=== PATIENT | male | born 1950 | race Caucasian/White ===

== ENCOUNTER 2017-10-16 00:04 | Inpatient (IN) | payer MEDICAID ==
[2017-10-16] MEDS ORDERED: ONDANSETRON 4 MG INJ IV (01:00)
[2017-10-16] MEDS ORDERED: MAGNESIUM HYDROXIDE 30ML CUP PO (01:00)
[2017-10-16] MEDS ORDERED: LACTULOSE 30ML CUP GTB (01:00)
[2017-10-16] MEDS ORDERED: hydrALAzine 20 MG INJ IV (01:00)
[2017-10-16] MEDS ORDERED: OLANZAPINE 5 MG TAB PO (01:00)
[2017-10-16 01:43] LABS: TROPONIN-I < 0.010 ng/ml (0.000-0.120)
[2017-10-16 02:37] LABS: ADD MAN DIFF? NO
[2017-10-16] MEDS: NACL 3% FOR INHALATION 15 ML NEBU NEB (02:38)
[2017-10-16 02:43] LABS: BASOPHILS % 0.3 % (0.0-2.0); EOSINOPHILS # 0.1 10^3/ul (0.0-0.5); EOSINOPHILS % 1.3 % (0.0-7.0); HEMATOCRIT 35.8 % (42.0-52.0); HEMOGLOBIN 11.7 g/dl (14.0-18.0); IMMATURE GRANS #M 0.03 10^3/ul; IMMATURE GRANS % (M) 0.4 %; LYMPHOCYTES % 12.6 % (15.0-51.0); MEAN CORPUSCULAR HEMOGLOBIN 28.5 pg (29.0-33.0); MEAN CORPUSCULAR HGB CONC 32.7 g/dl (32.0-37.0); MEAN CORPUSCULAR VOLUME 87.1 fl (82.0-101.0); MEAN PLATELET VOLUME 8.7 fl (7.4-10.4); MONOCYTE # 0.8 10^3/ul (0.3-0.9); MONOCYTES % 9.7 % (0.0-11.0); NEUTROPHILS % 75.7 % (39.0-77.0); PLATELET COUNT 236 10^3/UL (140-415); RED BLOOD COUNT 4.11 10^6/ul (4.70-6.10); RED CELL DISTRIBUTION WIDTH 14.6 % (11.5-14.5)
[2017-10-16 03:07] LABS: ALANINE AMINOTRANSFERASE 28 IU/L (13-69); ALBUMIN 3.4 g/dl (3.3-4.9); ALBUMIN/GLOBULIN RATIO 1.09; ALKALINE PHOSPHATASE 163 IU/L (42-121); ANION GAP 16 (8-16); ASPARTATE AMINO TRANSFERASE 21 IU/L (15-46); BILIRUBIN,INDIRECT 0.2 mg/dl (0-1.1); BILIRUBIN,TOTAL 0.2 mg/dl (0.2-1.3); BLOOD UREA NITROGEN 18 mg/dl (7-20); CALCIUM 9.5 mg/dl (8.4-10.2); CARBON DIOXIDE 25 mmol/L (21-31); CHLORIDE 103 mmol/L (97-110); CREATININE 0.69 mg/dl (0.61-1.24); GLUCOSE 116 mg/dl (70-220); MAGNESIUM 1.9 mg/dl (1.7-2.5); POTASSIUM 4.6 mmol/L (3.5-5.1); SODIUM 139 mmol/L (135-144); TOTAL PROTEIN 6.5 g/dl (6.1-8.1)
[2017-10-16 05:09] LABS: ADD MAN DIFF? NO
[2017-10-16 05:18] LABS: BASOPHILS % 0.4 % (0.0-2.0); EOSINOPHILS # 0.1 10^3/ul (0.0-0.5); EOSINOPHILS % 1.4 % (0.0-7.0); HEMATOCRIT 36.3 % (42.0-52.0); HEMOGLOBIN 11.8 g/dl (14.0-18.0); IMMATURE GRANS #M 0.05 10^3/ul; IMMATURE GRANS % (M) 0.6 %; LYMPHOCYTES # 1.3 10^3/ul (0.8-2.9); LYMPHOCYTES % 15.9 % (15.0-51.0); MEAN CORPUSCULAR HEMOGLOBIN 28.5 pg (29.0-33.0); MEAN CORPUSCULAR HGB CONC 32.5 g/dl (32.0-37.0); MEAN CORPUSCULAR VOLUME 87.7 fl (82.0-101.0); MEAN PLATELET VOLUME 8.9 fl (7.4-10.4); MONOCYTE # 0.9 10^3/ul (0.3-0.9); MONOCYTES % 10.8 % (0.0-11.0); NEUTROPHIL # 5.7 10^3/ul (1.6-7.5); NEUTROPHILS % 70.9 % (39.0-77.0); PLATELET COUNT 263 10^3/UL (140-415); RED BLOOD COUNT 4.14 10^6/ul (4.70-6.10); RED CELL DISTRIBUTION WIDTH 14.7 % (11.5-14.5)
[2017-10-16 05:40] LABS: TROPONIN-I < 0.010 ng/ml (0.000-0.120)
[2017-10-16] MEDS: TRIMETHOPRIM/SULFAMETHOX (PO SYG) GTB ×2 (09:00→20:37)
[2017-10-16] MEDS ORDERED: PROPRANOLOL 40 MG TAB PO (09:00)
[2017-10-16] MEDS: FERROUS SULFATE 60 MG/ML 5ML CUP GTB (09:03)
[2017-10-16] MEDS: ACETAMINOPHEN 650MG/20.3ML CUP GTB (09:03)
[2017-10-16] MEDS: MICONAZOLE 2% 30 GM CR TOP ×2 (09:03→20:46)
[2017-10-16] MEDS: CHLORHEXIDINE GLUCONATE 15 ML UD CUP MT ×2 (09:04→20:37)
[2017-10-16] MEDS: FAMOTIDINE 20 MG TAB GTB ×2 (09:04→20:37)
[2017-10-16] MEDS: LISINOPRIL 10 MG TAB GTB (09:04)
[2017-10-16] MEDS: LEVETIRACETAM (100 MG/ML) 5ML CUP GTB ×2 (09:04→20:36)
[2017-10-16] MEDS: LACTOBACILLUS RHAMNOSUS CAP GTB (09:04)
[2017-10-16] MEDS: PROPYLTHIOURACIL 50 MG TAB GTB ×3 (09:04→21:58)
[2017-10-16] MEDS: MULTIVITAMINS 30 ML CUP GTB (09:04)
[2017-10-16] MEDS: ASCORBIC ACID 250 MG TAB GTB ×2 (09:05→21:58)
[2017-10-16] MEDS: HEPARIN 5,000 UNIT/0.5 ML VIAL SC ×2 (09:06→21:04)
[2017-10-16] MEDS: LACOSAMIDE (100 MG/10 ML PO SYR) GTB ×2 (09:11→21:00)
[2017-10-16] MEDS: NYSTATIN SUSP 5 ML CUP PO ×4 (09:11→20:37)
[2017-10-16 10:47] LABS: CREATINE KINASE < 20 IU/L (23-200)
[2017-10-16] MEDS ORDERED: PROPRANOLOL 10 MG TAB PO (11:00)
[2017-10-16 11:04] LABS: FREE THYROXINE INDEX (Calc) 6.08 ug/ml (0.65-3.89); T3 UPTAKE 40.8 % (23.5-40.5); T4 (THYROXINE) 14.9 ug/dl (5.5-11.0)
[2017-10-16] MEDS ORDERED: LORAZEPAM 1 MG TAB GTB (12:00)
[2017-10-16] MEDS ORDERED: LORAZEPAM 2 MG INJ (12:02)
[2017-10-16] MEDS: LORAZEPAM 2 MG INJ IV ×3 (12:40→22:18)
[2017-10-16 18:01] LABS: TROPONIN-I < 0.010 ng/ml (0.000-0.120)
[2017-10-16] MEDS: traZODone 50 MG TAB GTB (22:03)
[2017-10-16] MEDS: METOPROLOL 5 MG INJ IV (22:39)
[2017-10-17] MEDS: SOD CHLORIDE 0.9% 500 ML IV (02:44)
[2017-10-17] MEDS: LORAZEPAM 2 MG INJ IV ×2 (04:46→08:29)
[2017-10-17 05:09] LABS: AADO2 Arterial 73.1 mmHg (7.0-24.0); Allen Test ACCEPTAB; Arterial Base Excess 0.2 mmol/L (-3.0-3); Arterial Blood Gas Oxygen Sat 99.4 mmHG (95.0-98.0); Arterial COHb 0.3 % (0.0-3.0); Arterial Fraction of Oxyhgb 98.6 % (93.0-99.0); Arterial HCO3 23.7 mmol/L (22.0-26.0); Arterial MetHb 0.5 % (0.0-1.5); Arterial Total Hemglobin 11.4 g/dl (12.0-18.0); Arterial pCO2 34.5 mmhg (35-45); MODE VENT - AC; Site Right Radial
[2017-10-17 05:51] LABS: ADD MAN DIFF? NO
[2017-10-17 05:57] LABS: BASOPHILS % 0.2 % (0.0-2.0); EOSINOPHILS # 0.1 10^3/ul (0.0-0.5); EOSINOPHILS % 2.2 % (0.0-7.0); HEMATOCRIT 34.1 % (42.0-52.0); IMMATURE GRANS #M 0.02 10^3/ul; IMMATURE GRANS % (M) 0.4 %; LYMPHOCYTES % 17.5 % (15.0-51.0); MEAN CORPUSCULAR HEMOGLOBIN 28.3 pg (29.0-33.0); MEAN CORPUSCULAR HGB CONC 32.3 g/dl (32.0-37.0); MEAN CORPUSCULAR VOLUME 87.7 fl (82.0-101.0); MEAN PLATELET VOLUME 9.1 fl (7.4-10.4); MONOCYTE # 0.7 10^3/ul (0.3-0.9); MONOCYTES % 13.4 % (0.0-11.0); NEUTROPHIL # 3.6 10^3/ul (1.6-7.5); NEUTROPHILS % 66.3 % (39.0-77.0); PLATELET COUNT 189 10^3/UL (140-415); RED BLOOD COUNT 3.89 10^6/ul (4.70-6.10); RED CELL DISTRIBUTION WIDTH 14.6 % (11.5-14.5)
[2017-10-17 05:57] LABS: WHITE BLOOD COUNT 5.4 10^3/ul (4.8-10.8)
[2017-10-17 06:08] LABS: ADD UMIC YES; UR ASCORBIC ACID 40 mg/dL (NEGATIVE); UR BILIRUBIN (Dip) NEGATIVE (NEGATIVE); UR BLOOD (Dip) NEGATIVE (NEGATIVE); UR CALCIUM OXALATE CRYSTAL MANY /HPF (NONE SEEN); UR CLARITY CLOUDY (CLEAR); UR COLOR YELLOW (YELLOW); UR GLUCOSE (Dip) NEGATIVE (NEGATIVE); UR KETONES (Dip) NEGATIVE (NEGATIVE); UR LEUKOCYTE ESTERASE (Dip) NEGATIVE Leu/ul (NEGATIVE); UR MUCUS FEW /HPF (NONE SEEN); UR NITRITE (Dip) NEGATIVE (NEGATIVE); UR RBC 1 /HPF (0-5); UR SPECIFIC GRAVITY (Dip) 1.021 (1.003-1.030); UR TOTAL PROTEIN (Dip) 1+ mg/dl (NEGATIVE); UR UROBILINOGEN (Dip) 2+ mg/dL (NEGATIVE); UR WBC 1 /HPF (0-5)
[2017-10-17 06:14] LABS: LACTIC ACID 0.8 mmol/L (0.5-2.0)
[2017-10-17 06:21] LABS: ALANINE AMINOTRANSFERASE 29 IU/L (13-69); ALBUMIN/GLOBULIN RATIO 1.07; ALKALINE PHOSPHATASE 150 IU/L (42-121); ANION GAP 12 (8-16); BILIRUBIN,INDIRECT 0.2 mg/dl (0-1.1); BILIRUBIN,TOTAL 0.2 mg/dl (0.2-1.3); BLOOD UREA NITROGEN 16 mg/dl (7-20); CALCIUM 8.8 mg/dl (8.4-10.2); CARBON DIOXIDE 25 mmol/L (21-31); CHLORIDE 108 mmol/L (97-110); CREATININE 0.53 mg/dl (0.61-1.24); SODIUM 141 mmol/L (135-144); TOTAL PROTEIN 5.8 g/dl (6.1-8.1)
[2017-10-17 06:22] LABS: ASPARTATE AMINO TRANSFERASE 31 IU/L (15-46); GLUCOSE 97 mg/dl (70-220)
[2017-10-17] MEDS: LACOSAMIDE (100 MG/10 ML PO SYR) GTB ×2 (09:00→21:18)
[2017-10-17] MEDS: FERROUS SULFATE 60 MG/ML 5ML CUP GTB (09:02)
[2017-10-17] MEDS: MULTIVITAMINS 30 ML CUP GTB (09:02)
[2017-10-17] MEDS: LACTOBACILLUS RHAMNOSUS CAP GTB (09:02)
[2017-10-17] MEDS: LEVETIRACETAM (100 MG/ML) 5ML CUP GTB ×2 (09:02→21:16)
[2017-10-17] MEDS: TRIMETHOPRIM/SULFAMETHOX (PO SYG) GTB ×2 (09:02→21:17)
[2017-10-17] MEDS: ASCORBIC ACID 250 MG TAB GTB ×2 (09:03→21:16)
[2017-10-17] MEDS: LISINOPRIL 10 MG TAB GTB (09:03)
[2017-10-17] MEDS: PROPYLTHIOURACIL 50 MG TAB GTB ×3 (09:03→21:16)
[2017-10-17] MEDS: NYSTATIN SUSP 5 ML CUP PO ×4 (09:03→21:17)
[2017-10-17] MEDS: CHLORHEXIDINE GLUCONATE 15 ML UD CUP MT ×2 (09:03→21:16)
[2017-10-17] MEDS: FAMOTIDINE 20 MG TAB GTB ×2 (09:03→21:16)
[2017-10-17] MEDS: MICONAZOLE 2% 30 GM CR TOP ×2 (09:04→21:17)
[2017-10-17] MEDS: HEPARIN 5,000 UNIT/0.5 ML VIAL SC ×2 (09:05→21:27)
[2017-10-17] MEDS: FENTAnyl (DRIP) 1000 mcg/100mL 100 ML IV (12:27)
[2017-10-17] MEDS: traZODone 50 MG TAB GTB (21:16)
[2017-10-18 05:15] LABS: ADD MAN DIFF? NO
[2017-10-18 05:26] LABS: BASOPHILS % 0.5 % (0.0-2.0); EOSINOPHILS # 0.2 10^3/ul (0.0-0.5); EOSINOPHILS % 2.8 % (0.0-7.0); HEMATOCRIT 32.2 % (42.0-52.0); HEMOGLOBIN 10.5 g/dl (14.0-18.0); IMMATURE GRANS #M 0.03 10^3/ul; IMMATURE GRANS % (M) 0.5 %; LYMPHOCYTES # 0.9 10^3/ul (0.8-2.9); LYMPHOCYTES % 14.9 % (15.0-51.0); MEAN CORPUSCULAR HEMOGLOBIN 28.7 pg (29.0-33.0); MEAN CORPUSCULAR HGB CONC 32.6 g/dl (32.0-37.0); MEAN PLATELET VOLUME 8.9 fl (7.4-10.4); MONOCYTE # 0.7 10^3/ul (0.3-0.9); MONOCYTES % 10.8 % (0.0-11.0); NEUTROPHIL # 4.3 10^3/ul (1.6-7.5); NEUTROPHILS % 70.5 % (39.0-77.0); PLATELET COUNT 192 10^3/UL (140-415); RED BLOOD COUNT 3.66 10^6/ul (4.70-6.10); RED CELL DISTRIBUTION WIDTH 14.8 % (11.5-14.5)
[2017-10-18 05:48] LABS: ANION GAP 13 (8-16); BLOOD UREA NITROGEN 10 mg/dl (7-20); CALCIUM 8.8 mg/dl (8.4-10.2); CARBON DIOXIDE 27 mmol/L (21-31); CHLORIDE 105 mmol/L (97-110); CREATININE 0.46 mg/dl (0.61-1.24); GLUCOSE 144 mg/dl (70-220); MAGNESIUM 1.7 mg/dl (1.7-2.5); PHOSPHORUS 3.1 mg/dl (2.5-4.9); POTASSIUM 4.1 mmol/L (3.5-5.1); SODIUM 141 mmol/L (135-144)
[2017-10-18] MEDS: FENTAnyl (DRIP) 1000 mcg/100mL 100 ML IV ×3 (06:51→22:21)
[2017-10-18] MEDS: MICONAZOLE 2% 30 GM CR TOP ×2 (09:22→21:17)
[2017-10-18] MEDS: TRIMETHOPRIM/SULFAMETHOX (PO SYG) GTB ×2 (09:22→21:17)
[2017-10-18] MEDS: LISINOPRIL 10 MG TAB GTB (09:23)
[2017-10-18] MEDS: LACTOBACILLUS RHAMNOSUS CAP GTB (09:23)
[2017-10-18] MEDS: FAMOTIDINE 20 MG TAB GTB ×2 (09:23→21:17)
[2017-10-18] MEDS: PROPYLTHIOURACIL 50 MG TAB GTB ×3 (09:23→21:16)
[2017-10-18] MEDS: FERROUS SULFATE 60 MG/ML 5ML CUP GTB (09:24)
[2017-10-18] MEDS: MULTIVITAMINS 30 ML CUP GTB (09:24)
[2017-10-18] MEDS: NYSTATIN SUSP 5 ML CUP PO ×4 (09:24→21:17)
[2017-10-18] MEDS: ASCORBIC ACID 250 MG TAB GTB ×2 (09:24→21:17)
[2017-10-18] MEDS: CHLORHEXIDINE GLUCONATE 15 ML UD CUP MT ×2 (09:24→21:17)
[2017-10-18] MEDS: LEVETIRACETAM (100 MG/ML) 5ML CUP GTB ×2 (09:24→21:23)
[2017-10-18] MEDS: HEPARIN 5,000 UNIT/0.5 ML VIAL SC ×2 (09:26→21:20)
[2017-10-18] MEDS: LACOSAMIDE (100 MG/10 ML PO SYR) GTB ×2 (09:38→21:17)
[2017-10-18 13:09] LABS: AADO2 Arterial 18.9 mmHg (7.0-24.0); Allen Test ACCEPTAB; Arterial Base Excess 3.1 mmol/L (-3.0-3); Arterial Blood Gas Oxygen Sat 98.7 mmHG (95.0-98.0); Arterial COHb 0.3 % (0.0-3.0); Arterial Fraction of Oxyhgb 97.9 % (93.0-99.0); Arterial HCO3 26.9 mmol/L (22.0-26.0); Arterial MetHb 0.5 % (0.0-1.5); Arterial Total Hemglobin 11.5 g/dl (12.0-18.0); Arterial pCO2 38.2 mmhg (35-45); Blood Gas PS 10; MODE VENT - CPAP; Site Right Radial
[2017-10-18] MEDS: ACETAMINOPHEN 650MG/20.3ML CUP GTB (18:08)
[2017-10-18] MEDS: LORAZEPAM 2 MG INJ IV ×2 (18:08→21:16)
[2017-10-18] MEDS: DIPHENHYDRAMINE 50 MG INJ IV (19:17)
[2017-10-18] MEDS: morphine 4 MG/ML VIAL IV (20:22)
[2017-10-18] MEDS: traZODone 50 MG TAB GTB (21:16)
[2017-10-18] MEDS ORDERED: FENTAnyl (DRIP) 1000 mcg/100mL 100 ML IV (22:30)
[2017-10-19] MEDS: morphine 4 MG/ML VIAL IV ×2 (04:46→16:53)
[2017-10-19 05:04] LABS: ADD MAN DIFF? NO
[2017-10-19 05:11] LABS: WHITE BLOOD COUNT 5.2 10^3/ul (4.8-10.8)
[2017-10-19 05:12] LABS: BASOPHILS % 0.4 % (0.0-2.0); EOSINOPHILS # 0.1 10^3/ul (0.0-0.5); EOSINOPHILS % 2.5 % (0.0-7.0); HEMATOCRIT 33.3 % (42.0-52.0); HEMOGLOBIN 10.8 g/dl (14.0-18.0); IMMATURE GRANS #M 0.01 10^3/ul; IMMATURE GRANS % (M) 0.2 %; MEAN CORPUSCULAR HEMOGLOBIN 28.8 pg (29.0-33.0); MEAN CORPUSCULAR HGB CONC 32.4 g/dl (32.0-37.0); MEAN CORPUSCULAR VOLUME 88.8 fl (82.0-101.0); MEAN PLATELET VOLUME 9.1 fl (7.4-10.4); MONOCYTE # 0.7 10^3/ul (0.3-0.9); MONOCYTES % 13.6 % (0.0-11.0); NEUTROPHIL # 3.3 10^3/ul (1.6-7.5); NEUTROPHILS % 63.3 % (39.0-77.0); PLATELET COUNT 199 10^3/UL (140-415); RED BLOOD COUNT 3.75 10^6/ul (4.70-6.10); RED CELL DISTRIBUTION WIDTH 14.9 % (11.5-14.5)
[2017-10-19 05:33] LABS: ANION GAP 12 (8-16); BLOOD UREA NITROGEN 11 mg/dl (7-20); CALCIUM 8.8 mg/dl (8.4-10.2); CARBON DIOXIDE 29 mmol/L (21-31); CHLORIDE 103 mmol/L (97-110); GLUCOSE 131 mg/dl (70-220); MAGNESIUM 1.8 mg/dl (1.7-2.5); PHOSPHORUS 4.3 mg/dl (2.5-4.9); POTASSIUM 4.8 mmol/L (3.5-5.1); SODIUM 139 mmol/L (135-144)
[2017-10-19] MEDS: CHLORHEXIDINE GLUCONATE 15 ML UD CUP MT ×2 (08:56→20:59)
[2017-10-19] MEDS: TRIMETHOPRIM/SULFAMETHOX (PO SYG) GTB (08:56)
[2017-10-19] MEDS: PROPYLTHIOURACIL 50 MG TAB GTB ×3 (08:56→20:59)
[2017-10-19] MEDS: NYSTATIN SUSP 5 ML CUP PO ×4 (08:56→20:59)
[2017-10-19] MEDS: FERROUS SULFATE 60 MG/ML 5ML CUP GTB (08:56)
[2017-10-19] MEDS: LACOSAMIDE (100 MG/10 ML PO SYR) GTB ×2 (08:56→21:02)
[2017-10-19] MEDS: MULTIVITAMINS 30 ML CUP GTB (08:56)
[2017-10-19] MEDS: ASCORBIC ACID 250 MG TAB GTB ×2 (08:57→20:59)
[2017-10-19] MEDS: FAMOTIDINE 20 MG TAB GTB ×2 (08:57→20:59)
[2017-10-19] MEDS: LACTOBACILLUS RHAMNOSUS CAP GTB (08:57)
[2017-10-19] MEDS: LISINOPRIL 10 MG TAB GTB (08:57)
[2017-10-19] MEDS: LEVETIRACETAM (100 MG/ML) 5ML CUP GTB ×2 (09:00→21:02)
[2017-10-19] MEDS: MICONAZOLE 2% 30 GM CR TOP ×2 (09:15→21:15)
[2017-10-19] MEDS: HEPARIN 5,000 UNIT/0.5 ML VIAL SC ×2 (09:15→21:18)
[2017-10-19] MEDS: CALAMINE/PRAMOXINE LOT 180 ML BTL TOP ×2 (11:30→21:15)
[2017-10-19] MEDS: DIPHENHYDRAMINE 2.5 MG/ML 5ML CUP GTB ×2 (13:07→18:16)
[2017-10-19] MEDS: FENTAnyl (DRIP) 1000 mcg/100mL 100 ML IV (16:52)
[2017-10-19] MEDS: traZODone 50 MG TAB GTB (20:59)
[2017-10-20] MEDS: DIPHENHYDRAMINE 2.5 MG/ML 5ML CUP GTB ×3 (00:32→11:38)
[2017-10-20 05:44] LABS: ADD MAN DIFF? NO
[2017-10-20 05:51] LABS: WHITE BLOOD COUNT 5.5 10^3/ul (4.8-10.8)
[2017-10-20 05:51] LABS: BASOPHILS % 0.4 % (0.0-2.0); EOSINOPHILS # 0.2 10^3/ul (0.0-0.5); EOSINOPHILS % 3.1 % (0.0-7.0); HEMATOCRIT 32.4 % (42.0-52.0); HEMOGLOBIN 10.6 g/dl (14.0-18.0); LYMPHOCYTES # 1.2 10^3/ul (0.8-2.9); LYMPHOCYTES % 21.5 % (15.0-51.0); MEAN CORPUSCULAR HEMOGLOBIN 28.9 pg (29.0-33.0); MEAN CORPUSCULAR HGB CONC 32.7 g/dl (32.0-37.0); MEAN CORPUSCULAR VOLUME 88.3 fl (82.0-101.0); MEAN PLATELET VOLUME 9.2 fl (7.4-10.4); MONOCYTE # 0.7 10^3/ul (0.3-0.9); NEUTROPHIL # 3.5 10^3/ul (1.6-7.5); NEUTROPHILS % 62.6 % (39.0-77.0); PLATELET COUNT 231 10^3/UL (140-415); RED BLOOD COUNT 3.67 10^6/ul (4.70-6.10)
[2017-10-20 06:12] LABS: ANION GAP 11 (8-16); BLOOD UREA NITROGEN 11 mg/dl (7-20); CARBON DIOXIDE 30 mmol/L (21-31); CHLORIDE 99 mmol/L (97-110); CREATININE 0.49 mg/dl (0.61-1.24); GLUCOSE 128 mg/dl (70-220); MAGNESIUM 1.8 mg/dl (1.7-2.5); PHOSPHORUS 4.5 mg/dl (2.5-4.9); POTASSIUM 4.3 mmol/L (3.5-5.1); SODIUM 136 mmol/L (135-144)
[2017-10-20] MEDS: FERROUS SULFATE 60 MG/ML 5ML CUP GTB (08:21)
[2017-10-20] MEDS: MULTIVITAMINS 30 ML CUP GTB (08:22)
[2017-10-20] MEDS: PROPYLTHIOURACIL 50 MG TAB GTB ×2 (08:22→13:44)
[2017-10-20] MEDS: FAMOTIDINE 20 MG TAB GTB (08:23)
[2017-10-20] MEDS: ASCORBIC ACID 250 MG TAB GTB (08:23)
[2017-10-20] MEDS: LEVETIRACETAM (100 MG/ML) 5ML CUP GTB (08:23)
[2017-10-20] MEDS: NYSTATIN SUSP 5 ML CUP PO ×2 (08:24→13:44)
[2017-10-20] MEDS: CALAMINE/PRAMOXINE LOT 180 ML BTL TOP (08:24)
[2017-10-20] MEDS: LACTOBACILLUS RHAMNOSUS CAP GTB (08:24)
[2017-10-20] MEDS: LISINOPRIL 10 MG TAB GTB (08:24)
[2017-10-20] MEDS: CHLORHEXIDINE GLUCONATE 15 ML UD CUP MT (08:24)
[2017-10-20] MEDS: MICONAZOLE 2% 30 GM CR TOP (08:25)
[2017-10-20] MEDS: morphine 4 MG/ML VIAL IV ×2 (08:33→12:42)
[2017-10-20] MEDS: HEPARIN 5,000 UNIT/0.5 ML VIAL SC (08:47)
[2017-10-20] MEDS: LACOSAMIDE (100 MG/10 ML PO SYR) GTB (11:38)
[2017-10-20] MEDS: ACETAMINOPHEN 650MG/20.3ML CUP GTB (11:54)
[2017-10-20] MEDS: clonAZEPAM 0.5 MG TAB NGT (13:44)
[2017-10-20] MEDS ORDERED: HYDROCODONE/APAP (5/325) TAB PO (14:30)
[2017-10-20] MEDS ORDERED: LORAZEPAM 2 MG INJ IV (14:30)
== END 2017-10-20 14:45 | disposition other institution (70) | DRG 308 ==
LOC: ICU 00:04
PROVIDERS: Internal Medicine Pulmonary Disease
PROC: 5A1945Z Respiratory Ventilation, 24-96 Consecutive Hours (ICD-10-PCS; principal; 2017-10-16)
DX: R00.1 Bradycardia, unspecified (principal); I46.9 Cardiac arrest, cause unspecified; G93.40 Encephalopathy, unspecified; J96.10 Chronic respiratory failure, unspecified whether with hypoxia or hypercapnia; Z93.0 Tracheostomy status; Z93.1 Gastrostomy status; D64.9 Anemia, unspecified; E05.90 Thyrotoxicosis, unspecified without thyrotoxic crisis or storm; G40.909 Epilepsy, unspecified, not intractable, without status epilepticus; I10 Essential (primary) hypertension; R21 Rash and other nonspecific skin eruption; Z87.820 Personal history of traumatic brain injury
CPT/HCPCS: 36600; 71045; 80048; 80053; 81001; 82550; 82803; 82962; 83605; 83735; 84100; 84436; 84479; 84484; 85025; 87040; 87075; 87081; 87086; 89220; 94002; 94003; 95819